=== PATIENT | female | born 1955 | race Caucasian/White ===

== ENCOUNTER 2021-08-23 14:07 | Inpatient (IN) | payer MEDICARE, OTHER ==
[~2021-08-23] VITALS: Ht 165.1 cm; Wt 124.3 kg
[~2021-08-23 14:07] MED LIST: BENTYL10 MG PO; CANE1 EACH XX; CIPRO500 MG PO; CYCLOBENZAPRINE10 MG PO; GABAPENTIN300 MG PO; GLUCOTROL5 MG PO; INVOKANA300 MG PO; LIPITOR40 MG PO; METFORMIN HCL500 MG PO; METRONIDAZOLE500 MG PO; NEURONTIN300 MG PO; OXYCODONE HCL5 MG PO; PRINIVIL20 MG PO; PROTONIX 40MG T40 MG PO; SINGULAIR10 MG PO; TRAMADOL HCL50 MG PO; ULTRAM50 MG PO; VOLTAREN100 GM TOP; ZOFRAN4 MG PO; inhaler; vit d
[2021-08-23 14:56] LABS: BASOPHIL 0.4 % (0-2); EOSINOPHIL 0.4 % (0-7); HCT 47.3 % (37.0-47.0); HGB 14.6 g/dl (12.5-16.0); LYMPHOCYTE 32.3 % (15-48); MCH 30.2 pg (25.0-31.0); MCHC 30.9 g/dL (32.0-36.0); MCV 97.9 fL (78.0-100.0); MPV 12.6 fL (6.0-9.5); NEUTROPHIL 62.6 % (41-80); NRBC 0; PLT 240 K/uL (150-400); RBC 4.83 M/uL (4.20-5.40); RDW 14.1 % (11.5-14.0); WBC 11.2 K/uL (4.0-10.5)
[2021-08-23 14:59] LABS: INR 0.98 (0.9-1.2); PROTHROMBIN TIME 12.4 SECONDS (11.8-13.4); PTT 28.1 SECONDS (24.4-34.7)
[2021-08-23 15:42] LABS: ALBUMIN 3.4 g/dL (3.4-5.0); BILIRUBIN - TOTAL 0.4 mg/dL (0.2-1.0); BUN/CREAT RATIO (CALC) 29.8 RATIO; CREATININE 0.57 mg/dL (0.51-0.95); GLOBULIN (CALCULATION) 3.6 g/dL; POTASSIUM 4.3 mmol/L (3.5-5.1)
[2021-08-23 16:39] LABS: LACTIC ACID 1.9 mmol/L (0.4-1.9)
[2021-08-24] MEDS ORDERED: ARNUITY ELLIP200 MCG INH (01:23)
[2021-08-24 08:34] LABS: BASOPHIL 0.5 % (0-2); EOSINOPHIL 0.6 % (0-7); HCT 44.2 % (37.0-47.0); HGB 13.7 g/dl (12.5-16.0); LYMPHOCYTE 43.9 % (15-48); MCH 30.6 pg (25.0-31.0); MCV 98.9 fL (78.0-100.0); MONOCYTE 4.9 % (0-12); MPV 11.8 fL (6.0-9.5); NEUTROPHIL 49.8 % (41-80); NRBC 0; PLT 176 K/uL (150-400); RBC 4.47 M/uL (4.20-5.40); WBC 9.5 K/uL (4.0-10.5)
[2021-08-24 08:53] LABS: ALBUMIN 3.1 g/dL (3.4-5.0); BILIRUBIN - TOTAL 0.4 mg/dL (0.2-1.0); BUN/CREAT RATIO (CALC) 31.9 RATIO; CREATININE 0.47 mg/dL (0.51-0.95); POTASSIUM 4.6 mmol/L (3.5-5.1); TOTAL PROTEIN 6.1 g/dL (6.4-8.2)
== END 2021-08-24 09:50 | disposition other institution (70) | DRG 309 ==
LOC: FER 14:07 → FTCU 17:51
PROVIDERS: Emergency Medicine; Internal Medicine; ADMIT Allergy & Immunology Allergy
DX: I48.92 Unspecified atrial flutter (principal); Z68.42 Body mass index [BMI] 45.0-49.9, adult; Z20.822 Contact with and (suspected) exposure to COVID-19; E66.01 Morbid (severe) obesity due to excess calories; E11.9 Type 2 diabetes mellitus without complications; I10 Essential (primary) hypertension; I25.10 Atherosclerotic heart disease of native coronary artery without angina pectoris; E78.5 Hyperlipidemia, unspecified; J44.9 Chronic obstructive pulmonary disease, unspecified; G47.33 Obstructive sleep apnea (adult) (pediatric); Z99.81 Dependence on supplemental oxygen; Z98.51 Tubal ligation status; Z98.890 Other specified postprocedural states; Z82.49 Family history of ischemic heart disease and other diseases of the circulatory system; Z79.84 Long term (current) use of oral hypoglycemic drugs; Z79.899 Other long term (current) drug therapy
CPT/HCPCS: 36415; 71045; 71275; 80053; 83036; 83605; 83880; 84443; 84484; 85025; 85379; 85610; 85730; 87040; 93005; J1160; J1644; J2405; Q9967; U0002